=== PATIENT | male | born 1990 | race Caucasian/White ===

== ENCOUNTER 2019-09-26 02:34 | Emergency (ER) | payer OTHER ==
[~2019-09-26] VITALS: Ht 165.1 cm; Wt 80.0 kg
--- NOTE | 2019-09-26 02:56 | PHYS DOC ---
Past History Past Medical History: Hypertension Past Surgical History: No Surgical History Alcohol Use: Rarely General Adult EDM: Chief Complaint: ABDOMINAL PAIN HPI: HPI: Patient is a 29 year old male who presents for evaluation of mid and upper abdominal discomfort. Onset was about 11 PM tonight and symptoms have been progressively worsening. Patient states the pain does radiate to his right side into his low back. Patient has recurrent nausea no but no vomiting or diarrhea. Patient has no significant past medical history. Patient and is in moderate to severe distress on arrival. Patient has no prior surgical or significant medical history. Review of Systems: Review of Systems: Constitutional: Denies fever or chills Eyes: Denies change in visual acuity HENT: Denies nasal congestion or sore throat Respiratory: Denies cough or shortness of breath Cardiovascular: Denies chest pain or edema GI: upper abdominal pain, with nausea, no vomiting, bloody stools or diarrhea : Denies dysuria Musculoskeletal: some low back pain no joint pain Integument: Denies rash Neurologic: Denies headache, focal weakness or sensory changes Endocrine: Denies polyuria or polydipsia Lymphatic: Denies swollen glands Psychiatric: Denies depression or anxiety Heart Score: Risk Factors: Risk Factors: DM, Current or recent (<one month) smoker, HTN, HLP, family history of CAD, obesity. Risk Scores: Score 0 - 3: 2.5% MACE over next 6 weeks - Discharge Home Score 4 - 6: 20.3% MACE over next 6 weeks - Admit for Clinical Observation Score 7 - 10: 72.7% MACE over next 6 weeks - Early Invasive Strategies Allergies: Allergies: Allergies Coded Allergies Type Severity Reaction Last Updated Verified No Known Drug Allergies 09/26/19 No Physical Exam: PE: Constitutional: Well developed, well nourished, moderate acute distress. [] HENT: Normocephalic, atraumatic, bilateral external ears normal, oropharynx moist, no oral exudates, nose normal. [] Eyes: PERRL, EOMI, conjunctiva normal, no discharge. [] Neck: Normal range of motion, no tenderness, supple. [] Cardiovascular:Heart rate regular rhythm, no murmur [] Lungs & Thorax: Bilateral breath sounds clear to auscultation [] Abdomen: Bowel sounds normal, soft, moderate mid and upper abd tenderness, no masses. [] Skin: Warm, dry, no erythema, no rash. [] Back: No tenderness, no CVA tenderness. [] Extremities: No tenderness, no cyanosis, ROM intact, no edema. [] Neurologic: Alert and oriented X 3, normal motor function, normal sensory function, no focal deficits noted. [] Psychologic: Affect normal, judgement normal, mood anxious. [] Current Patient Data: Labs: Laboratory Tests Test 09/26/19 02:58 09/26/19 03:55 White Blood Count 13.1 x10^3/uL Red Blood Count 5.29 x10^6/uL Hemoglobin 14.9 g/dL Hematocrit 44.2 % Mean Corpuscular Volume 84 fL Mean Corpuscular Hemoglobin 28 pg Mean Corpuscular Hemoglobin Concent 34 g/dL Red Cell Distribution Width 13.8 % Platelet Count 253 x10^3/uL Neutrophils (%) (Auto) 66 % Lymphocytes (%) (Auto) 24 % Monocytes (%) (Auto) 8 % Eosinophils (%) (Auto) 3 % Basophils (%) (Auto) 1 % Neutrophils # (Auto) 8.6 x10^3uL Lymphocytes # (Auto) 3.1 x10^3/uL Monocytes # (Auto) 1.0 x10^3/uL Eosinophils # (Auto) 0.3 x10^3/uL Basophils # (Auto) 0.1 x10^3/uL Sodium Level 142 mmol/L Potassium Level 3.8 mmol/L Chloride Level 104 mmol/L Carbon Dioxide Level 28 mmol/L Anion Gap 10 Blood Urea Nitrogen 12 mg/dL Creatinine 1.2 mg/dL Estimated GFR (Cockcroft-Gault) 72.6 BUN/Creatinine Ratio 10 Glucose Level 112 mg/dL Calcium Level 8.9 mg/dL Total Bilirubin 0.5 mg/dL Aspartate Amino Transf (AST/SGOT) 26 U/L Alanine Aminotransferase (ALT/SGPT) 33 U/L Alkaline Phosphatase 60 U/L Troponin I Quantitative < 0.017 ng/mL Total Protein 7.1 g/dL Albumin 3.9 g/dL Albumin/Globulin Ratio 1.2 Lipase 261 U/L Urine Collection Type Unknown Urine Color Yellow Urine Clarity Clear Urine pH 7.0 Urine Specific Cactus 1.025 Urine Protein Neg Urine Glucose (UA) Neg mg/dL Urine Ketones (Stick) Neg mg/dL Urine Blood Neg Urine Nitrite Neg Urine Bilirubin Neg Urine Urobilinogen Dipstick 0.2 mg/dL Urine Leukocyte Esterase Neg Urine RBC 0 /HPF Urine WBC Occ /HPF Urine Squamous Epithelial Cells Occ /LPF Urine Bacteria 0 /HPF Current Medications Medications (Trade) Dose Ordered Sig/Jesus Route PRN Reason Start Time Stop Time Status Last Admin Dose Admin Sodium Chloride 1,000 ml @ 1,000 mls/hr Q1H IV 09/26/19 03:00 09/26/19 03:59 DC 09/26/19 03:11 Ketorolac Tromethamine (Toradol 30mg Vial) 30 mg 1X ONCE IVP 09/26/19 03:00 09/26/19 03:36 DC 09/26/19 03:12 Ondansetron HCl (Zofran) 4 mg 1X ONCE IVP 09/26/19 03:00 09/26/19 03:36 DC 09/26/19 03:13 Iohexol (Omnipaque 300 Mg/ml) 75 ml 1X ONCE IV 09/26/19 03:45 09/26/19 03:46 DC 09/26/19 03:42 Info (Do NOT chart on this entry -- for MONITORING) 1 each PRN DAILY PRN MC SEE COMMENTS 09/26/19 03:45 09/28/19 03:44 Vital Signs: Vital Signs Date Time Temp Pulse Resp B/P (MAP) Pulse Ox O2 Delivery O2 Flow Rate FiO2 09/26/19 02:43 98.4 76 18 149/99 (116) 97 Room Air EKG: EKG: EKG showed normal sinus rhythm, rate 68, inverted T wave lead III, unremarkable EKG, not STEMI [] Radiology/Procedures: Radiology/Procedures: [address] [address] IMAGING REPORT Signed PATIENT: LUDIVINA BAY TACCOUNT: [id number] : 1990 LOCATION: ER AGE: 29 SEX: M EXAM STATUS: REG ER ORD. PHYSICIAN: DAMON VARGAS DO REASON: mid/upper severe abdominal pain PROCEDURE: CT ABD PELV W/ IV CONTRST ONLY INDICATION: Reason: mid/upper severe abdominal pain / Spl. Instructions: / History: COMPARISON: None. TECHNIQUE: Axial CT images obtained through the abdomen and pelvis with contrast. One or more of the following individualized dose reduction techniques were utilized for this examination: 1. Automated exposure control; 2. Adjustment of the mA and/or kV according to patient size; 3. Use of iterative reconstruction technique. FINDINGS: Mild dependent airspace opacities. Abdominal aorta not aneurysmal. No intrahepatic bile duct dilation. No peripancreatic fluid collection. Spleen unremarkable. No hydronephrosis. The urinary bladder is partially distended. Appendix measures approximately 7 mm with adjacent inflammatory changes. Small fat-containing umbilical hernia. No dilated loops of bowel to suggest obstruction. Pars defect L5. IMPRESSION: * The appendix is mildly dilated with adjacent inflammatory changes concerning for appendicitis. * Mild patchy opacities at lung bases. Likely secondary to atelectasis unless the patient has symptoms of pneumonia Electronically signed by: Mckay Flores MD (09/26/2019 4:37 AM) [id number] DICTATED AND SIGNED BY: MCKAY FLORES MD DATE: 09/26/19 0437 CC: PCP,UNKNOWN; DAMON VARGAS DO ~ [] Course & Med Decision Making: Course & Med Decision Making Pertinent Labs and Imaging studies reviewed. (See chart for details) [] Dragon Disclaimer: Dragon Disclaimer: This electronic medical record was generated, in whole or in part, using a voice recognition dictation system. 0455 Case was discussed with Dr. Gilbert the on-call general surgeon for [facility]. Patient will be admitted to his service. Patient started on IV Zosyn already and given IV fluid bolus. Pain is controlled before transfer Departure Departure: Impression: Primary Impression: Acute appendicitis Qualified Codes: K35.30 - Acute appendicitis with localized peritonitis, without perforation or gangrene Disposition: 05 TRANSFER OTHER ([facility] under care of Dr. Valladares) Condition: STABLE Referrals: PCP,UNKNOWN (PCP) Justification of Admission: Justification of Admission: Justification of Admission Dx: N/A DAMON VARGAS DO Sep 26, 2019 02:56
[2019-09-26] MEDS ORDERED: ONDANSETRON PF 4 MG/2 ML VIAL. IVP ONE (03:00)
[2019-09-26] MEDS ORDERED: KETOROLAC 30 MG/ML VIAL. IVP ONE (03:00)
[2019-09-26] MEDS ORDERED: IV NORMAL SALINE 1,000ML 1,000 ML IV SCH (03:00)
[2019-09-26 03:14] LABS: BASO # 0.1 x10^3/uL (0.0-0.2); BASO % 1 % (0-3); EOS # 0.3 x10^3/uL (0.0-0.7); EOS % 3 % (0-3); HEMATOCRIT 44.2 % (39.0-53.0); HEMOGLOBIN 14.9 g/dL (13.0-17.5); LYMPH # 3.1 x10^3/uL (1.0-4.8); LYMPH % 24 % (24-48); MEAN CORPUSCULAR HEMOGLOBIN 28 pg (25-35); MEAN CORPUSCULAR HGB CONC 34 g/dL (31-37); MEAN CORPUSCULAR VOLUME 84 fL (79-100); MONO % 8 % (0-9); NEUT # 8.6 x10^3uL (1.8-7.7); NEUT % 66 % (31-73); PLATELET COUNT 253 x10^3/uL (140-400); RED BLOOD COUNT 5.29 x10^6/uL (4.30-5.70); RED CELL DISTRIBUTION WIDTH 13.8 % (11.5-14.5); WHITE BLOOD COUNT 13.1 x10^3/uL (4.0-11.0)
[2019-09-26 03:23] LABS: CALCIUM 8.9 mg/dL (8.5-10.1); CREATININE 1.2 mg/dL (0.7-1.3); GFR 72.6; POTASSIUM 3.8 mmol/L (3.5-5.1)
[2019-09-26 03:30] LABS: ALBUMIN 3.9 g/dL (3.4-5.0); ALBUMIN/GLOBULIN RATIO 1.2 (1.0-1.7); TOTAL BILIRUBIN 0.5 mg/dL (0.2-1.0); TOTAL PROTEIN 7.1 g/dL (6.4-8.2)
[2019-09-26] MEDS ORDERED: CONTRAST GIVEN. MC PRN (03:45)
[2019-09-26] MEDS ORDERED: IOHEXOL 300 MG/ML 75 ML VIAL. IV ONE (03:45)
[2019-09-26 04:21] LABS: BILIRUBIN,URINE NEG (NEG); CLARITY,URINE CLEAR; COLOR,URINE YELLOW; GLUCOSE,URINE NEG (NEG)
[2019-09-26 04:22] LABS: BACTERIA,URINE 0 /HPF (0-FEW); NITRITE,URINE NEG (NEG); RBC,URINE 0 /HPF (0-2); SQUAMOUS EPITHELIAL CELL,UR OCC /LPF; UROBILINOGEN,URINE 0.2 mg/dL (0.2 mg/dL); WBC,URINE OCC /HPF (0-4)
--- NOTE | 2019-09-26 04:40 | RAD ---
INDICATION: Reason: mid/upper severe abdominal pain / Spl. Instructions: / History: COMPARISON: None. TECHNIQUE: Axial CT images obtained through the abdomen and pelvis with contrast. One or more of the following individualized dose reduction techniques were utilized for this examination: 1. Automated exposure control; 2. Adjustment of the mA and/or kV according to patient size; 3. Use of iterative reconstruction technique. FINDINGS: Mild dependent airspace opacities. Abdominal aorta not aneurysmal. No intrahepatic bile duct dilation. No peripancreatic fluid collection. Spleen unremarkable. No hydronephrosis. The urinary bladder is partially distended. Appendix measures approximately 7 mm with adjacent inflammatory changes. Small fat-containing umbilical hernia. No dilated loops of bowel to suggest obstruction. Pars defect L5. IMPRESSION: * The appendix is mildly dilated with adjacent inflammatory changes concerning for appendicitis. * Mild patchy opacities at lung bases. Likely secondary to atelectasis unless the patient has symptoms of pneumonia Electronically signed by: Heriberto Valentino MD (09/26/2019 4:37 AM) [id number]
[2019-09-26] MEDS ORDERED: PIPERACILLIN/TAZOBACTAM 3.375 GM VIAL IV ONE (05:03)
[2019-09-26] MEDS ORDERED: IV NORMAL SALINE 50ML 0 ML ONE (05:04)
[2019-09-26] MEDS ORDERED: PIPERACILLIN/TAZOBACTAM 3.375 GM in IV NORMAL SALINE 50ML 50 ML IV ONE (05:15)
[2019-09-26] MEDS ORDERED: IV NORMAL SALINE 50ML 50 ML ONE (05:18)
[2019-09-26 07:33] VITALS: BP 145/92
--- NOTE | 2019-09-27 20:50 | EKG ---
[address] [address] Test Date: 2019-09-26 Test Time: 03:07:15 Pat Name: LUDIVINA RUIZ Department: Room: Gender: M Loan Servicing Officer: : 1990 Requested By: DAMON VARGAS Order Number: [id number] Reading MD: Measurements Intervals [place] Rate: 68 P: 34 HI: 146 QRS: 14 QRSD: 104 T: -26 QT: 362 QTc: 389 Interpretive Statements SINUS RHYTHM NO SPECIFIC ECG ABNORMALITIES RI6.02 No previous ECG available for comparison
== END 2019-09-26 07:31 | disposition short-term general hospital (02) ==
LOC: ER 02:34
DX: K35.30 Acute appendicitis with localized peritonitis, without perforation or gangrene (principal); I10 Essential (primary) hypertension; Z20.828 Contact with and (suspected) exposure to other viral communicable diseases
CPT/HCPCS: 36415; 74177; 80053; 81001; 83690; 84484; 85025; 87426; 93005; 96361; 96365; 96375; 99285; J1885; J2405; J2543; J3010; J7030; Q9967; U0003

== ENCOUNTER 2019-12-10 08:16 | Emergency (ER) | payer OTHER ==
[~2019-12-10] VITALS: Ht 165.1 cm; Wt 80.0 kg
[2019-12-10] MEDS ORDERED: IV NORMAL SALINE 1,000ML 1,000 ML IV SCH (08:26)
--- NOTE | 2019-12-10 08:28 | PHYS DOC ---
Past History Past Medical History: Hypertension Past Surgical History: No Surgical History Smoking: Non-smoker Alcohol Use: Rarely Drug Use: None General Adult EDM: Chief Complaint: cough, vomiting, dizzy, exposued to COVID HPI: HPI: Patient is a 29 year old male who presents for evaluation of episodes of vom iting and dizziness overnight. Patient has had a loose cough for the past 1 1/2 weeks. Patient has known exposure to Covid about 14 days ago. Patient arrived via EMS for evaluation. Patient had IV access and received dose of Zofran 4 mg prior to arrival. Patient is not toxic appearing and vital signs are stable. Oxygen sats are above 95%. Patient is lucid and appropriate with no conversational dyspnea Review of Systems: Review of Systems: Constitutional: Denies fever has chills Eyes: Denies change in visual acuity HENT: has nasal congestion and sore throat Respiratory: has cough and shortness of breath Cardiovascular: Denies chest pain or edema GI: Denies abdominal pain, has nausea, and vomiting, no bloody stools has diarrhea overnight : Denies dysuria Musculoskeletal: Denies back pain or joint pain Integument: Denies rash Neurologic: Denies headache, focal weakness or sensory changes Endocrine: Denies polyuria or polydipsia Lymphatic: Denies swollen glands Psychiatric: Denies depression or anxiety Allergies: Allergies: Allergies Coded Allergies Type Severity Reaction Last Updated Verified No Known Drug Allergies 09/26/19 No Physical Exam: PE: Constitutional: Well developed, well nourished, mild acute distress, non-toxic appearance. [] HENT: Normocephalic, atraumatic, bilateral external ears normal, oropharynx moist, no oral exudates, nose normal. [] Eyes: PERRL, EOMI, conjunctiva normal, no discharge. [] Neck: Normal range of motion, no tenderness, supple, no stridor. [] Cardiovascular:Heart rate regular rhythm, no murmur [] Lungs & Thorax: Bilateral breath sounds clear to auscultation [] Abdomen: Bowel sounds normal, soft, no tenderness, no masses. [] Skin: Warm, dry, no erythema, no rash. [] Back: No tenderness. [] Extremities: No tenderness, no cyanosis, ROM intact, no edema. [] Neurologic: Alert and oriented X 3, normal motor function, normal sensory function, no focal deficits noted. [] Psychologic: Affect normal, judgement normal, mood mild anxious. [] EKG: EKG: [] Radiology/Procedures: Radiology/Procedures: [] Impressions: [place] [address] IMAGING REPORT Signed PATIENT: LUDIVINA BAY TACCOUNT: [id number] : 1990 LOCATION: ER AGE: 29 SEX: M EXAM STATUS: REG ER ORD. PHYSICIAN: DAMON VARGAS DO REASON: short of air, cough, ?covid PROCEDURE: PORTABLE CHEST 1V EXAMINATION: PORTABLE CHEST 1V CLINICAL HISTORY: Shortness of breath, cough, possible COVID EXAM DATE/TIME: 12/10/2019 8:26 AM COMPARISON: None FINDINGS: Lines, Tubes, and Devices: None. Cardiomediastinal Silhouette: Within normal limits. Lungs and Pleura: No evidence of focal airspace consolidation, pleural effusion, or pneumothorax. Bones and Soft Tissues: No acute osseous abnormality. IMPRESSION: No evidence of acute cardiopulmonary abnormality. Electronically signed by: Shamir Roberts DO (12/10/2019 8:53 AM) [id number] DICTATED AND SIGNED BY: SHAMIR ROBERTS DO DATE: 12/10/19 0853 CC: DAMON VARGAS DO; LISA CUNNINGHAM DO, MPH ~ Heart Score: Risk Factors: Risk Factors: DM, Current or recent (<one month) smoker, HTN, HLP, family histo ry of CAD, obesity. Risk Scores: Score 0 - 3: 2.5% MACE over next 6 weeks - Discharge Home Score 4 - 6: 20.3% MACE over next 6 weeks - Admit for Clinical Observation Score 7 - 10: 72.7% MACE over next 6 weeks - Early Invasive Strategies Course & Med Decision Making: Course & Med Decision Making Pertinent Labs and Imaging studies reviewed. (See chart for details) Laboratory Tests Test 12/10/19 08:30 White Blood Count 11.0 x10^3/uL Red Blood Count 5.40 x10^6/uL Hemoglobin 15.1 g/dL Hematocrit 45.7 % Mean Corpuscular Volume 85 fL Mean Corpuscular Hemoglobin 28 pg Mean Corpuscular Hemoglobin Concent 33 g/dL Red Cell Distribution Width 13.2 % Platelet Count 267 x10^3/uL Platelet Estimate Pending Sodium Level 140 mmol/L Potassium Level 4.1 mmol/L Chloride Level 104 mmol/L Carbon Dioxide Level 24 mmol/L Anion Gap 12 Blood Urea Nitrogen 9 mg/dL Creatinine 1.2 mg/dL Estimated GFR (Cockcroft-Gault) 72.6 BUN/Creatinine Ratio 8 Glucose Level 104 mg/dL Calcium Level 9.0 mg/dL Total Bilirubin 0.3 mg/dL Aspartate Amino Transf (AST/SGOT) 27 U/L Alanine Aminotransferase (ALT/SGPT) 30 U/L Alkaline Phosphatase 72 U/L Total Protein 7.6 g/dL Albumin 3.9 g/dL Albumin/Globulin Ratio 1.1 Influenza Type A (Rapid) Negative Influenza Type B (Rapid) Negative Group A Streptococcus Rapid Negative Current Medications Medications (Trade) Dose Ordered Sig/Jesus Route PRN Reason Start Time Stop Time Status Last Admin Dose Admin Sodium Chloride 1,000 ml @ 1,000 mls/hr Q1H IV 12/10/19 08:26 12/10/19 09:25 DC 12/10/19 08:30 Fani Disclaimer: Fani Disclaimer: This electronic medical record was generated, in whole or in part, using a voice recognition dictation system. 1025 stable, reassessed and patient feels much better. Patient will be given symptomatic treatment including prescription for Zofran. Covid swab results not yet known patient placed under quarantine. Covid follow-up instructions given. Chest x-ray and lab work are stable. Patient does not have influenza or strep throat. Supportive care recommended. Patient did not meet criteria for inpatient admission Departure Departure: Impression: Primary Impression: Person under investigation for COVID-19 Additional Impressions: Nausea & vomiting Qualified Codes: R11.2 - Nausea with vomiting, unspecified Diarrhea Qualified Codes: R19.7 - Diarrhea, unspecified Disposition: 01 DC HOME SELF CARE/HOMELESS Condition: STABLE Referrals: LISA CUNNINGHAM DO, MPH (PCP) Patient Instructions: Diarrhea, Nausea and Vomiting Additional Instructions: You have been tested for or diagnosed with COVID-19. It is an infection caused by a new type of coronavirus. COVID-19 will cause cold-like or mild flu symptoms in most. It can cause more severe symptoms like problems breathing in some. There is no treatment for COVID-19. The body will clear the infection over time. Self-care will help to ease discomfort. Steps to Take: Self-Care Rest as needed. Healthy habits may help you feel better. Steps include: Choose healthy foods including fruits and vegetables. Drink water throughout the day. Get plenty of sleep each night. If you smoke, try to quit. It may ease breathing. Avoid alcohol. Keep Others Healthy The virus can spread to others. Droplets are released every time you sneeze or cough. The droplets can get into the mouth, nose, or eyes of people near you and lead to infection. To lower the chances of spreading COVID-19 to others: Stay at home until your doctor has said it is safe to leave. If you tested positive this will mean staying isolated until both of the following are true: At least 7 days have passed since the start of illness. You are free of fever for at least 72 hours without the use of medicine. During this time: - Avoid public areas, events, or transportation. Do not return to work or school until your doctor has said it is safe to do so. - Call ahead if you need to go to a medical center. Let them know you may have COVID-19. It will help them guide you where to go. They may also ask you to wear a facemask when you come to the office. - If you call for emergency medical services, let them know you may have COVID- 19. While at home: - Try to avoid close contact with others. Stay about 6 feet away. - If possible, spend most of your time in a separate room from others. - Use a face mask if you will be in close contact with others such as sharing a room or vehicle. - Have someone wipe down common surfaces in the home. Use household doorperson or luggage porter every day on areas like doorknobs, counters, or sinks. - Cough or sneeze into a tissue. Throw the tissue away right after use. If a ti ssue is not available, cough or sneeze into your elbow. - Wash your hands often. Wash them after sneezing or coughing. Use soap and water and wash for at least 20 seconds. Alcohol based hand laundry or dry cleaners counter clerk can be used if soap and water is not available. - Do not prepare food for others. Avoid sharing personal items like forks, spoons, or toothbrushes. - Avoid close contact with pets while you are sick. There is no evidence of the virus passing to pets. This is a safety step until more is known about this virus. Isolation can be frustrating. Social interaction can help. Keep in touch with friends and family through phone and tech options. You can still interact with others in your home, just keep a safe distance of about 6 feet. Follow-up: Your doctors office will check in with you to see if there are any changes in your health. You may be asked to keep track of symptoms to share with them. They will also let you know when you are clear to be in public again. Problems to Look Out For: Contact your doctor if your recovery is not going as you expect. Get emergency care if you have problems such as: - Trouble breathing - Nonstop chest pain or pressure - Changes in awareness, confusion, or problems waking - Lips or face have bluish color - Worsening of symptoms If you think you have an emergency, call for emergency medical services right away. As taken from [facility] Ondansetron Hcl (ZOFRAN) 4 Mg Tablet 1 TAB PO PRN Q6HRS PRN for NAUSEA, #6 TAB Prov: DAMON VARGAS DO 12/10/19 COVID-19 Assessment COVID-19 Patient Risks: Age 65 or older: No Sign of co-morbidity: Yes Exp to person + for COVID: Yes Exp to PUI: Yes Travel from affected area: No Lower respiratory symptoms: Yes Fever: No Other: No PPE Use: Full PPE with N95 mask or PAPR: Yes DAMON VARGAS DO Dec 10, 2019 08:28
--- NOTE | 2019-12-10 08:55 | RAD ---
EXAMINATION: PORTABLE CHEST 1V CLINICAL HISTORY: Shortness of breath, cough, possible COVID EXAM DATE/TIME: 12/10/2019 8:26 AM COMPARISON: None FINDINGS: Lines, Tubes, and Devices: None. Cardiomediastinal Silhouette: Within normal limits. Lungs and Pleura: No evidence of focal airspace consolidation, pleural effusion, or pneumothorax. Bones and Soft Tissues: No acute osseous abnormality. IMPRESSION: No evidence of acute cardiopulmonary abnormality. Electronically signed by: Shamir Newman DO (12/10/2019 8:53 AM) [id number]
[2019-12-10 09:32] LABS: CREATININE 1.2 mg/dL (0.7-1.3); GFR 72.6; POTASSIUM 4.1 mmol/L (3.5-5.1)
[2019-12-10 09:39] LABS: ALBUMIN 3.9 g/dL (3.4-5.0); ALBUMIN/GLOBULIN RATIO 1.1 (1.0-1.7); TOTAL BILIRUBIN 0.3 mg/dL (0.2-1.0); TOTAL PROTEIN 7.6 g/dL (6.4-8.2)
[2019-12-10 09:42] LABS: HEMATOCRIT 45.7 % (39.0-53.0); HEMOGLOBIN 15.1 g/dL (13.0-17.5)
[2019-12-10 09:47] LABS: MEAN CORPUSCULAR HEMOGLOBIN 28 pg (25-35); MEAN CORPUSCULAR HGB CONC 33 g/dL (31-37); MEAN CORPUSCULAR VOLUME 85 fL (79-100); PLATELET COUNT 267 x10^3/uL (140-400); RED CELL DISTRIBUTION WIDTH 13.2 % (11.5-14.5)
[2019-12-10 09:52] LABS: INFLUENZA A PATIENT NEGATIVE (NEGATIVE); INFLUENZA B PATIENT NEGATIVE (NEGATIVE)
[2019-12-10 10:18] LABS: % BASOS 1 % (0-3); % EOS 1 % (0-5); % LYMPHS 20 % (24-48); % MONOS 7 % (0-10); % SEGS 71 % (35-66); PLT ESTIMATE ADEQUATE (ADEQUATE)
[2019-12-10 10:28] LABS: BACTERIA,URINE FEW /HPF (0-FEW); BILIRUBIN,URINE NEG (NEG); CLARITY,URINE CLEAR; COLOR,URINE YELLOW; GLUCOSE,URINE NEG (NEG); GRANULAR CASTS,URINE FEW /HPF; HYALINE CASTS, URINE FEW /HPF; NITRITE,URINE NEG (NEG); SQUAMOUS EPITHELIAL CELL,UR OCC /LPF; UROBILINOGEN,URINE 0.2 mg/dL (0.2 mg/dL)
[2019-12-10] MEDS ORDERED: ONDA4TAB7 PO (10:33)
[2019-12-10 10:48] VITALS: BP 122/86
--- NOTE | 2019-12-12 15:02 | NUR ---
IP: patient notified of COVID result.
== END 2019-12-10 10:48 | disposition home or self-care (01) ==
LOC: ER 08:16
DX: R19.7 Diarrhea, unspecified (principal); R11.2 Nausea with vomiting, unspecified; R42 Dizziness and giddiness; R05 Cough; I10 Essential (primary) hypertension; Z20.828 Contact with and (suspected) exposure to other viral communicable diseases
CPT/HCPCS: 36415; 71045; 80053; 81001; 85007; 85025; 87070; 87804; 87880; 96360; 96361; 99285; C9803; J7030; U0003

== ENCOUNTER 2020-08-31 16:58 | Emergency (ER) | payer OTHER ==
[~2020-08-31] VITALS: Ht 165.1 cm; Wt 81.3 kg
[~2020-08-31 16:58] MED LIST: ONDA4TAB7 PO
[2020-08-31] MEDS ORDERED: DIPH25CA58 PO (17:42)
[2020-08-31] MEDS ORDERED: FAMO-63 PO (17:42)
[2020-08-31] MEDS ORDERED: PRED20TA PO (17:42)
[2020-08-31] MEDS ORDERED: predniSONE 20 MG TABLET PO ONE (17:45)
[2020-08-31] MEDS ORDERED: FAMOTIDINE 20 MG TABLET PO ONE (17:45)
[2020-08-31] MEDS ORDERED: diphenhydrAMINE HCL 25 MG CAPSULE PO ONE (17:45)
--- NOTE | 2020-08-31 17:46 | PHYS DOC ---
Past History Past Medical History: Hypertension Additional Past Medical Histor: low testosterone Past Surgical History: Appendectomy Smoking: Non-smoker Alcohol Use: None Drug Use: None General Adult EDM: Chief Complaint: SKIN RASH/ABSCESS HPI: HPI: Patient is a [age] year old [sex] who presents with [] Review of Systems: Review of Systems: Constitutional: Denies fever or chills Eyes: Denies change in visual acuity HENT: Denies nasal congestion or sore throat Respiratory: Denies cough or shortness of breath Cardiovascular: Denies chest pain or edema GI: Denies abdominal pain, nausea, vomiting, bloody stools or diarrhea : Denies dysuria Musculoskeletal: Denies back pain or joint pain Integument: Denies rash Neurologic: Denies headache, focal weakness or sensory changes Endocrine: Denies polyuria or polydipsia Lymphatic: Denies swollen glands Psychiatric: Denies depression or anxiety Allergies: Allergies: Allergies Coded Allergies Type Severity Reaction Last Updated Verified No Known Drug Allergies 08/31/20 No Physical Exam: PE: Constitutional: Well developed, well nourished, no acute distress, non-toxic appearance. [] HENT: Normocephalic, atraumatic, bilateral external ears normal, oropharynx moist, no oral exudates, nose normal. [] Eyes: PERRLA, EOMI, conjunctiva normal, no discharge. [] Neck: Normal range of motion, no tenderness, supple, no stridor. [] Cardiovascular:Heart rate regular rhythm, no murmur [] Lungs & Thorax: Bilateral breath sounds clear to auscultation [] Abdomen: Bowel sounds normal, soft, no tenderness, no masses, no pulsatile masses. [] Skin: Warm, dry, no erythema, no rash. [] Back: No tenderness, no CVA tenderness. [] Extremities: No tenderness, no cyanosis, no clubbing, ROM intact, no edema. [] Neurologic: Alert and oriented X 3, normal motor function, normal sensory function, no focal deficits noted. [] Psychologic: Affect normal, judgement normal, mood normal. [] Current Patient Data: Vital Signs: Vital Signs Date Time Temp Pulse Resp B/P (MAP) Pulse Ox O2 Delivery O2 Flow Rate FiO2 08/31/20 17:00 97.7 87 18 140/90 97 Room Air EKG: EKG: [] Radiology/Procedures: Radiology/Procedures: [] Heart Score: Risk Factors: Risk Factors: DM, Current or recent (<one month) smoker, HTN, HLP, family hi story of CAD, obesity. Risk Scores: Score 0 - 3: 2.5% MACE over next 6 weeks - Discharge Home Score 4 - 6: 20.3% MACE over next 6 weeks - Admit for Clinical Observation Score 7 - 10: 72.7% MACE over next 6 weeks - Early Invasive Strategies Course & Med Decision Making: Course & Med Decision Making Pertinent Labs and Imaging studies reviewed. (See chart for details) [] Dragon Disclaimer: Dragon Disclaimer: This electronic medical record was generated, in whole or in part, using a voice recognition dictation system. Departure Departure: Impression: Primary Impression: Poison jenna dermatitis Disposition: HOME / SELF CARE / HOMELESS Condition: STABLE Referrals: LISA CUNNINGHAM DO, MPH (PCP) Patient Instructions: Poison Jenna, [id number] Additional Instructions: HOLD previously prescribed antibiotics as your physical exam findings appear more consistent for poison jenna dermatitis. Scripts Famotidine (PEPCID) 20 Mg Tablet 1 TAB PO BID for Poison Jenna for 5 Days, #10 TAB Prov: FIDENCIO QUEEN DO 08/31/20 Diphenhydramine Hcl (BENADRYL) 25 Mg Capsule 1 CAP PO Q6HRS PRN for RASH, #30 CAP 0 Refills Prov: FIDENCIO QUEEN DO 08/31/20 Prednisone (PREDNISONE) 20 Mg Tablet 2 TAB PO DAILY for Poison Jenna for 5 Days, #10 TAB Start this prescription tomorrow, Sun09/01/20 Prov: FIDENCIO QUEEN DO 08/31/20 FIDENCIO QUEEN DO Aug 31, 2020 17:46
[2020-08-31 18:05] VITALS: BP 127/94
== END 2020-08-31 18:05 | disposition home or self-care (01) ==
LOC: ER 16:58
DX: L23.7 Allergic contact dermatitis due to plants, except food (principal); I10 Essential (primary) hypertension; Z90.89 Acquired absence of other organs
CPT/HCPCS: 99284; J7512; Q0163